=== PATIENT | male | born 1950 | race Caucasian/White ===

== ENCOUNTER 2021-06-02 11:07 | Day surgery (SDC) | payer BC ==
[~2021-06-02] VITALS: Ht 177.8 cm; Wt 57.7 kg
[2021-06-02] MEDS ORDERED: BUPIVACAINE/PF 0.5% ONE (11:17)
[2021-06-02] MEDS ORDERED: PAPAVERINE 30 MG/ML, 2ML ONE (11:17)
[2021-06-02] MEDS ORDERED: HEPARIN 1,000 UNITS/ML, 10ML ONE (11:18)
[2021-06-02] MEDS ORDERED: PROTAMINE SULFATE 10 MG/ML, 5ML ONE (11:18)
[2021-06-02] MEDS ORDERED: EPINEPHRINE 1 MG/ML, 1ML ONE (11:18)
[2021-06-02] MEDS ORDERED: LACTATED RINGERS 1,000 ML IV SCH (11:30)
[2021-06-02] MEDS ORDERED: CHLORHEXIDINE 15 ML UDC PO ONE ×2 (11:30→14:00)
[2021-06-02] MEDS ORDERED: CLON0.1T22 PO (11:36)
[2021-06-02] MEDS ORDERED: LANS30CA PO (11:36)
[2021-06-02] MEDS ORDERED: TERA2CAP3 PO (11:36)
[2021-06-02] MEDS ORDERED: TAMS-11 PO (11:36)
[2021-06-02] MEDS ORDERED: METO25TA35 PO (11:36)
[2021-06-02] MEDS ORDERED: QUET25TA7 PO (11:36)
[2021-06-02] MEDS ORDERED: LOSA100T14 PO (11:36)
[2021-06-02] MEDS ORDERED: AMLO-211 PO (11:36)
[2021-06-02] MEDS ORDERED: SEVE800T8 PO (11:36)
[2021-06-02 11:39] VITALS: BP 166/75
[2021-06-02 12:10] LABS: BASOPHILS % (AUTO) 2 % (0-1); EOSINOPHILS % (AUTO) 1 % (1-7); LYMPHOCYTES % (AUTO) 29 % (22-44); MEAN CORPUSCULAR HEMOGLOBIN 29.5 pg (27.5-34.5); MEAN PLATELET VOLUME 6.4 fL (7.4-10.4); MONOCYTES % (AUTO) 9 % (2-9); NEUTROPHILS % (AUTO) 59 % (42-75); PLATELET COUNT 494 x10^3/uL (130-400); RED BLOOD COUNT 3.18 x10^6/uL (4.38-5.82); RED CELL DISTRIBUTION WIDTH 18.5 % (9.4-14.8)
[2021-06-02 12:11] LABS: ALBUMIN 2.4 g/dL (3.4-5.0); ANION GAP 8 mmol/L (5-15); CALCIUM 8.8 mg/dL (8.5-10.1); CHLORIDE 100 mmol/L (98-107); CREATININE 3.32 mg/dL (0.7-1.3)
[2021-06-02 12:21] LABS: ALANINE AMINOTRANSFERASE 13 U/L (12-78); ALKALINE PHOSPHATASE 108 U/L (45-117); BILIRUBIN,TOTAL 0.3 mg/dL (0.2-1.0); INTERNATIONAL NORMALIZED RATIO 0.98 (0.93-1.1); PROTHROMBIN TIME 10.5 Seconds (9.6-11.5); TOTAL PROTEIN 8.3 g/dL (6.4-8.2)
[2021-06-02] MEDS ORDERED: HYDR-2214 PO (14:20)
[2021-06-02] MEDS ORDERED: FENTANYL PF 100 MCG/2ML IV PRN (14:30)
[2021-06-02] MEDS ORDERED: OXYcodone 5 MG/5 ML ORAL.SOL UDC PO PRN (14:30)
[2021-06-02] MEDS ORDERED: DIAZEPAM 5 MG/ML, 2ML IV PRN ×2 (14:30)
[2021-06-02] MEDS ORDERED: PROMETHAZINE 25 MG/ML, 1ML IV PRN (14:30)
[2021-06-02] MEDS ORDERED: KETOROLAC 30 MG/1 ML IV PRN (14:30)
[2021-06-02] MEDS ORDERED: hydrALAzine 20 MG/ML, 1ML IV PRN (14:30)
[2021-06-02] MEDS ORDERED: ONDANSETRON 2MG/ML, 2ML IVPush PRN (14:30)
[2021-06-02] MEDS ORDERED: HYDROmorphone 1 MG/ML, 1ML INJ IV PRN (14:30)
[2021-06-02] MEDS ORDERED: ALBUTEROL SULFATE 2.5 MG/3 ML NPPB PRN (14:30)
[2021-06-02] MEDS ORDERED: LABETALOL 5MG/ML, 20ML IV PRN (14:30)
[2021-06-02] MEDS ORDERED: MEPERIDINE/PF 25MG/0.5ML IVPush PRN (14:30)
[2021-06-02] MEDS ORDERED: OXYcodone 5 MG/5 ML ORAL.SOL UDC ONE (15:17)
[2021-06-02] MEDS ORDERED: SEVELAMER CARBONATE 800MG TAB PO SCH (16:00)
[2021-06-02] MEDS ORDERED: TERAZOSIN 2MG CAPSULE PO SCH (21:00)
[2021-06-02] MEDS ORDERED: METOPROLOL TARTRATE 25 MG TAB PO SCH (21:00)
[2021-06-02] MEDS ORDERED: QUETIAPINE 25MG TABLET PO SCH (21:00)
[2021-06-03] MEDS ORDERED: AMLODIPINE 10 MG TAB PO SCH (09:00)
[2021-06-03] MEDS ORDERED: LOSARTAN 100 MG TAB PO SCH (09:00)
[2021-06-03] MEDS ORDERED: TAMSULOSIN 0.4 MG CAP.ER.24H PO SCH (09:00)
== END 2021-06-02 16:15 | disposition home or self-care (01) ==
LOC: OUT 11:07
PROVIDERS: ATTEND Surgery Vascular Surgery
DX: E11.22 Type 2 diabetes mellitus with diabetic chronic kidney disease (principal); N18.6 End stage renal disease; R63.6 Underweight; Z20.822 Contact with and (suspected) exposure to COVID-19; Z68.1 Body mass index [BMI] 19.9 or less, adult; Z79.4 Long term (current) use of insulin; Z79.899 Other long term (current) drug therapy; Z87.891 Personal history of nicotine dependence; Z99.2 Dependence on renal dialysis; Z83.3 Family history of diabetes mellitus
CPT/HCPCS: 36821; 80053; 82962; 85025; 85610; 85730; 87635; 93005; J0171; J1644; J7120; J2720; J2440